=== PATIENT | female | born 1965 ===

== ENCOUNTER 2018-08-27 09:12 | Day surgery (SDC) | payer MEDICAID ==
[2018-08-26 09:10] VITALS: BMI 31.5
[2018-08-27] MEDS ORDERED: ceFAZolin 1 gm in NS 2 GM/200 ML BAG IVPB ONE (10:43)
[2018-08-27] MEDS ORDERED: Lidocaine/Epinephrine 1% 1:100000 10 ML IJ ONE (10:44)
[2018-08-27] MEDS ORDERED: Bupivacaine 0.25% 20 ML INJ IJ ONE (10:45)
[2018-08-27] MEDS ORDERED: Midazolam 2 MG/2 ML VIAL ONE (11:43)
[2018-08-27] MEDS ORDERED: Propofol 10 mg/ml Inj (20 ML) ONE (11:43)
[2018-08-27] MEDS ORDERED: HYDROmorphone 0.5 mg/0.5 ml ISec IVP PRN (12:39)
[2018-08-27] MEDS ORDERED: Oxycodone/Acetaminophen 5/325 mg Tab PO PRN (13:18)
--- NOTE | 2018-08-27 13:18 | PCM.SURG1 ---
Surgeon's Initial Post Op Note - Surgeon's Notes Surgeon: Dr. Blake Lens Examiner: Ilana Navas, PGY2; Ora Olivares OMS3 Pre-Operative Diagnosis: multiple sebaceous cysts of the scalp Operative Findings: 5 sebaceous cysts of the scalp, hemostasis adequately obtained by pressure Post-Operative Diagnosis: same Operation Performed: excision of 5 sebaceous cysts of the scalp Specimen/Specimens Removed: 5 cysts Estimated Blood Loss: EBL {In ML}: 10 Date of Surgery/Procedure: 08/27/18 Time of Surgery/Procedure: 11:45
[2018-08-27 13:51] VITALS: O2SAT 98
[2018-08-27 14:00] VITALS: BP 110/82; PULSE 80; RESP 18; TEMP 98
--- NOTE | 2018-08-28 04:08 | OP ---
PROCEDURE DATE: 08/27/2018 PREOPERATIVE DIAGNOSIS: Multiple sebaceous cysts of the skull. POSTOPERATIVE DIAGNOSES: 1. Multiple sebaceous cysts of the scalp, frontal, anterior, posterior, and middle. 2. Sebaceous cysts of the scalp, parietal and occipital area. PROCEDURES DONE: 1. Excision of the sebaceous cysts of the scalp, frontal anterior, 3 x 2 cm size. 2. Excision of the sebaceous cysts of the scalp, frontal middle, 3 x 2 cm size. 3. Excision of the sebaceous cyst of the scalp, frontal posterior, 2 x 2 cm size. 4. Excision of the sebaceous cyst of mid parietal region, 2 x 2 cm size. 5. Excision of the sebaceous cyst of the occipital area, 2 x 2 cm size. SURGEON: Diaz Blake MD FOAM RUBBER MOLDER: TIFFANIE Lafleur ANESTHESIA: General endotracheal tube anesthesia.' ESTIMATED BLOOD LOSS: Around 10 mL. DRAINS: None. PATHOLOGY: All the specimens were sent to the Pathology. COMPLICATIONS: None. INTRAOPERATIVE FINDINGS: The patient had multiple sebaceous cysts of the scalp in frontal, anterior, middle, and posterior as well as parietal and occipital areas. DESCRIPTION OF PROCEDURE: On intraoperative steps, this is a 53-year-old female who was diagnosed with multiple sebaceous cysts of the scalp. The patient was consented for the excisions of the sebaceous cysts, brought to the OR, placed supine on the operating table. After induction of the sedation, the scalp area was prepped and draped in the usual sterile fashion, and local anesthesia was injected in all the cyst areas. A transverse incision was made on the frontal anterior. Upper and lower flaps were created. The sebaceous cysts were completely excised. Now, the middle frontal posterior incision was made. Parietal and occipital incisions were also made, and upper and lower flaps were created. The sebaceous cysts were completely excised in all the areas. The wound was closed with a 4-0 nylon interrupted suture, and a dry sterile dressing was applied. The patient tolerated the procedure well. Count of the instrument and gauze was correct. There were no apparent complications. The patient was reversed from sedation and sent to the postanesthesia care unit in stable condition. Diaz Blake MD
== END 2018-08-27 14:15 | disposition home or self-care (01) ==
LOC: C.SDS 09:12
PROVIDERS: ATTEND Surgery Surgical Critical Care
DX: L72.3 Sebaceous cyst (principal)
CPT/HCPCS: 11422; 11423; 88304; J0690; J2250; J3010